=== PATIENT | male | born 1950 | race Caucasian/White ===

== ENCOUNTER 2024-08-06 17:42 | Emergency (ER) | payer MEDICARE, SELFPAY ==
[2024-08-06 17:45] VITALS: BP 141/92; PULSE 83; RESP 18; TEMP 36.4; O2SAT 98
--- NOTE | 2024-08-06 20:09 | ED_ITS ---
HPI - Eye Problem General Chief complaint: Eye Problems Stated complaint: r eye vision difficulty Time Seen by Provider: 08/06/24 19:38 History of Present Illness HPI Narrative: 74-year-old male with a past medical history of significant dementia presents to the emergency room with chief complaint of right eye vision difficulty. He wears contact lenses at baseline but only in his right eye and he manages them himself. His sister is visiting him today and notes that for approximately an hour he has been having some vision trouble in his right eye and noticed that he had 2 other additional contacts in his eye that she took out prior to arrival. Patient states he does not remember putting in multiple contacts in the eye but he does have dementia and is at his baseline presently but is only alert to himself and location. Resides at a alf facility at baseline. June escamilla denies any fever, chills, headache, nausea, vomiting, trauma. Denies scratching desire having any eye pain or redness in his eye. Related Data Home Medications ?Medication ?Instructions ?Recorded ?Confirmed ?Last Taken ?Type Unable to Obtain Home Medications 06/24/24 07/01/24 Unknown History Allergies Allergy/AdvReac Type Severity Reaction Status Date / Time No Known Allergies Allergy Verified 08/06/24 17:52 Review of Systems Review of Systems: As reviewed above in [facility] Social History Social History Smoking status: Never smoker Exam Narrative: GENERAL: [Well-appearing, well-nourished, and in no acute distress.] HEAD: [Normocephalic, atraumatic.] EYES: [PERRLA and EOMI.] In the right eye there is appears to be a retained contact lens without any tearing, injection or any other retained foreign body when shilo in the inferior or lower eyelid. Full range of motion of the extraocular movements, pupils are 3 mm and reactive bilaterally. No clouding of the cornea. Fluorescein dye reveals a retained contact lens in the center of his eye without any abrasions, erythema, ulcerations or hypopyon. ENT: Nares clear, no rhinorrhea or epistaxis. Mucous membranes moist. NECK: Supple. CHEST: [Clear to auscultation. No respiratory distress.] HEART: [Regular rate and rhythm]. No murmur heard. [Normal peripheral pulses.] ABDOMEN: [Soft, nondistended], [nontender], [No rigidity or guarding] EXTREMITIES: Normal range of motion. [No edema.] SKIN: Warm, dry, no rash. NEURO: [No focal deficits]. Alert and oriented [x3.] PSYCH: [Normal mood and affect.] Course Vital Signs Vital signs: Vital Signs Temperature 36.4 C 08/06/24 17:45 Pulse Rate 83 08/06/24 17:45 Respiratory Rate 18 08/06/24 17:45 Blood Pressure 141/92 H 08/06/24 17:45 Pulse Oximetry 98 08/06/24 17:45 Oxygen Delivery Room Air 08/06/24 17:45 Temperature 36.4 C 08/06/24 17:45 Pulse Rate 83 08/06/24 17:45 Respiratory Rate 18 08/06/24 17:45 Blood Pressure 141/92 H 08/06/24 17:45 Pulse Oximetry 98 08/06/24 17:45 Oxygen Delivery Room Air 08/06/24 17:45 Procedures FB Removal Eye Foreign Body #1: Foreign Body Removal Date: 08/06/24 Foreign Body Removal Time: 20:13 Time Out performed: Yes Location: eye (R) Topical anesthetic used: tetracaine Foreign body: other (contact lens) Evidence of corneal penetration: No Technique: cotton tip swab Procedure performed under: direct visualization with magnification Patient tolerated procedure: well and no complications MDM - Eye Problem MDM Narrative Medical decision making narrative: 74-year-old male with history of advanced dementia the presents from his alf facility for concerns of right eye difficulty and potentially retained foreign body. Patient wears contact lenses only in his right eye for vision trouble. States that he is having some blurriness of his eye but is able to correctly identify shapes and finger counting. On visualization he does have a total of 3 retained foreign bodies, 2 of which were removed prior to ocular staining for further visualization. We used tetracaine and fluorescein dye and visualized remaining contact lens and this was easily removed. No further c ontact lenses were identified in the inferior, superior I margins, we did shilo both eyelids without any retained foreign bodies or scratches. No corneal abrasions, ulcerations, hypopyon or signs of infection. No pain, extraocular movements are full, no injection. No corneal clouding. Vision had returned to baseline after removal of the foreign bodies. 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 No evidence of infection, no evidence of ulceration or any need for topical antibiotics at this time. Patient's tetanus is up-to-date according to the family. Patient verbalized understanding these instructions as well as his family members at bedside who will make sure he gets back to his care facility stay safely. Patient safely discharge this time. Medical Records Attestation: I reviewed the patient's medical records. Discharge Plan Discharge Clinical Impression: Contact lens stuck Patient Disposition: Home, Self-Care Condition: Stable Instructions: Antibiotic Form Additional Instructions: Follow-up with your regular eye doctor and primary care provider, return with any new or worsening concerns or more difficulty with her contact lenses. Patient Language: Hungarian Prescriptions: No Action Unable to Obtain Home Medications Follow-up/Referrals: Lorne Adames MD [Primary Care Provider] - Time of Disposition: 20:16
== END 2024-08-06 20:40 | disposition home or self-care (01) ==
PROVIDERS: Emergency Provider Student in an Organized Health Care Education/Training Program; PCP Family Medicine
DX: T15.01XA Foreign body in cornea, right eye, initial encounter (principal); F03.90 Unspecified dementia, unspecified severity, without behavioral disturbance, psychotic disturbance, mood disturbance, and anxiety; W44.8XXA Other foreign body entering into or through a natural orifice, initial encounter
CPT/HCPCS: 65220; 99283